=== PATIENT | female | born 1995 | race Caucasian/White ===

== ENCOUNTER 2024-01-28 20:11 | Emergency (ER) | payer OTHER ==
[~2024-01-28] VITALS: Ht 165.1 cm; Wt 69.0 kg
[2024-01-28 20:19] VITALS: O2SAT 98
[2024-01-28 21:21] VITALS: BP 126/86; PULSE 72; RESP 16; TEMP 97.9; O2SAT 100
[2024-01-28] MEDS ORDERED: LIDOCAINE HCL/PF 1% 10 MG/ML 5ML VIAL INFIL ONE (21:45)
[2024-01-28] MEDS: BACITRACIN ZINC OINT UDPKT TOP ONE (22:54)
== END 2024-01-28 22:56 | disposition home or self-care (01) ==
LOC: ER 20:11
DX: S61.211A Laceration without foreign body of left index finger without damage to nail, initial encounter (principal); Z88.0 Allergy status to penicillin; X58.XXXA Exposure to other specified factors, initial encounter; Y93.89 Activity, other specified; Y92.89 Other specified places as the place of occurrence of the external cause; Y99.8 Other external cause status
CPT/HCPCS: 12001; 99282; Z7610